=== PATIENT | female | born 2000 ===

== ENCOUNTER 2020-04-07 10:35 | Outpatient (CLI) | payer BC, SELFPAY ==
--- NOTE | 2020-05-17 15:25 | W.CARDEVENT ---
Date of service: 05/17/20 Time of Service: 15:25 Cardiac Event Recorder Cardiac Event Note: There is a 30-day event recorder ordered for the indication of paroxysmal atrial fibrillation. ?The recorder captured about 12 days of recording during the 30-day. ?The patient was in normal sinus rhythm for the majority of the recording with an average heartrate of 99 bpm. ?There were 25 total events 18 of which were triggered by the patient. All events were sinus tachycardia or sinus rhythm. ?There were no episodes of atrial fibrillation, no pauses greater than 3 seconds and no evidence of high degree heart block.
== END 2020-04-07 10:55 ==
PROVIDERS: PCP Internal Medicine; Visit Provider Internal Medicine Interventional Cardiology
DX: R55 Syncope and collapse (principal); I48.0 Paroxysmal atrial fibrillation
CPT/HCPCS: 93270